=== PATIENT | female | born 1980 | race Two or more races ===

== ENCOUNTER 2018-12-12 15:05 | Emergency (ER) | payer MEDICAID ==
--- NOTE | 2018-12-12 15:53 | ER Document Report ---
ED Medical Screen (RME) - General Chief Complaint: Anxiety Stated Complaint: ANXIETY Time Seen by Provider: 12/12/18 15:36 Mode of Arrival: Medic Information source: Patient Notes: This 38-year-old female presents emergency department for anxiety. Patient reports that she drove all the way from [place] to [place] for an appointment with a psychiatrist regarding her PTSD. Patient reports that appointment was at 1345. She arrived aT 1354 and was turned away. They reported her as a no-show. Patient had a breakdown in the parking lot and EMS was called. Patient is having trouble with her sentences words are fragmented. Eyes are red from crying. Patient reports she has a history of PTSD anxiety panic attacks and pain. Patient reports she was in the and she now has chronic back pain PTS from that. Patient denies fever vomiting. Patient reports when she has a panic attack she becomes lightheaded and dizzy. Patient does take hydroxyzine for the anxiety but did not want to take any because she has to drive all the way home to [place] and she becomes very tired. Patient was instructed to take 1 of her hydroxyzine's to calm her down and we would do labs. Also instructed we would give her something to eat and drink while she waited for the results. Patient's car is over at the medical office of the psychiatrist. She will need a ride there. Denies suicidal or homicidal ideations. I have greeted and performed a rapid initial assessment of this patient. A comprehensive ED assessment and evaluation of the patient, analysis of test results and completion of the medical decision making process will be conducted by additional ED providers. Dictation of this chart was performed using voice recognition software; therefore, there may be some unintended grammatical errors. TRAVEL OUTSIDE OF THE [place] IN LAST 30 DAYS: No - Related Data Allergies/Adverse Reactions: sumatriptan [From Imitrex] Allergy (Verified 12/12/18 15:09) Past Medical History - Social History Chew tobacco use (# tins/day): No Frequency of alcohol use: Rare Drug Abuse: None Renal/ Medical History: Denies: Hx Peritoneal Dialysis Psychiatric Medical History: Reports: Hx Depression Physical Exam - Vital signs Vitals: Temp Pulse Resp BP Pulse Ox 99.2 F 87 22 H 137/77 H 99 12/12/18 15:16 12/12/18 15:16 12/12/18 15:16 12/12/18 15:16 12/12/18 15:16 Course - Vital Signs Vital signs: Temp Pulse Resp BP Pulse Ox 99.2 F 87 22 H 137/77 H 99 12/12/18 15:16 12/12/18 15:16 12/12/18 15:16 12/12/18 15:16 12/12/18 15:16
[2018-12-12 16:34] LABS: ABSOLUTE EOSINOPHILS # (AUTO) 0.1 10^3/uL (0.0-0.6); MEAN CORPUSCULAR HGB CONC 31.8 g/dL (32.0-36.0); TOTAL CELLS COUNTED % (AUTO) 100 %
[2018-12-12 17:04] LABS: ABSOLUTE LYMPHOCYTES (AUTO) 2.6 10^3/uL (0.5-4.7); ABSOLUTE MONOCYTES (AUTO) 0.5 10^3/uL (0.1-1.4); ABSOLUTE NEUT (AUTO) 6.9 10^3/uL (1.7-8.2); BASOPHILS % (AUTO) 0.3 % (0-2); HEMATOCRIT 37.7 % (36.0-47.0); LYMPHOCYTES % (AUTO) 25.5 % (13-45); MEAN CORPUSCULAR HEMOGLOBIN 23.3 pg (27.0-33.4); MEAN CORPUSCULAR VOLUME 74 fl (80-97); MONOCYTES % (AUTO) 4.5 % (3-13); RED BLOOD COUNT 5.13 10^6/uL (3.72-5.28); RED CELL DISTRIBUTION WIDTH 14.6 % (11.5-14.0); SEGMENTED NEUTROPHILS % (AUTO) 68.7 % (42-78)
[2018-12-12 17:05] LABS: PLATELET COUNT 295 10^3/uL (150-450)
[2018-12-12 17:16] LABS: ALBUMIN 4.7 g/dL (3.5-5.0); ALKALINE PHOSPHATASE 64 U/L (38-126); ANION GAP 11 (5-19); ASPARTATE AMINO TRANSFERASE 28 U/L (14-36); BILIRUBIN,DIRECT 0.2 mg/dL (0.0-0.4); BILIRUBIN,TOTAL 0.3 mg/dL (0.2-1.3); BLOOD UREA NITROGEN 13 mg/dL (7-20); CALCIUM 9.2 mg/dL (8.4-10.2); CARBON DIOXIDE 21 mmol/L (22-30); CHLORIDE 109 mmol/L (98-107); GLUCOSE 101 mg/dL (75-110); POTASSIUM 3.8 mmol/L (3.6-5.0); TOTAL PROTEIN 8.4 g/dL (6.3-8.2)
[2018-12-12 18:08] LABS: APPEARANCE,URINE SLIGHTLY-CLOUDY; BILIRUBIN,URINE NEGATIVE (NEGATIVE); COLOR,URINE YELLOW; GLUCOSE, URINE NEGATIVE (NEGATIVE); KETONES,URINE NEGATIVE (NEGATIVE); LEUKOCYTE ESTERASE,URINE TRACE (NEGATIVE); NITRITE,URINE NEGATIVE (NEGATIVE); PROTEIN,URINE NEGATIVE (NEGATIVE); URINE SPECIFIC GRAVITY 1.023
--- NOTE | 2018-12-12 19:00 | ER Document Report ---
ED General - General Chief Complaint: Anxiety Stated Complaint: ANXIETY Time Seen by Provider: 12/12/18 15:36 Primary Care Provider: BETTY DESAI MD [Primary Care Provider] - Follow up as needed Mode of Arrival: Medic Notes: 38-year-old female with history of PTSD, anxiety, chronic back pain presents emergency department for anxiety. Patient reports that she drove all the way from [place] to [place] for an appointment with a psychiatrist regarding her PTSD. Patient reports that appointment was at 1345. She arrived aT 1354 and was turned away. They reported her as a no-show. Patient had a breakdown in the parking lot and EMS was called. Patient was having trouble with her sentences words were fragmented. Patient was having a panic attack and brought in by EMS. Patient takes hydroxyzine for her anxiety but she did not want to take any because she ultimately has to drive all the way home to [place] and it makes her tired. Patient denies any fevers or chills, recent illness, nausea or vomiting, dizziness/lightheadedness/weakness/extremity paresthesias, pa lpitations, shortness of breath at this time. She has calm down quite a bit. TRAVEL OUTSIDE OF THE [place] IN LAST 30 DAYS: No - Related Data Allergies/Adverse Reactions: sumatriptan [From Imitrex] Allergy (Verified 12/12/18 15:09) Past Medical History - General Information source: Patient - Social History Smoking Status: Never Smoker Chew tobacco use (# tins/day): No Frequency of alcohol use: Rare Drug Abuse: None Family History: None Patient has suicidal ideation: No Patient has homicidal ideation: No Renal/ Medical History: Denies: Hx Peritoneal Dialysis Psychiatric Medical History: Reports: Hx Depression Review of Systems - Review of Systems Constitutional: See HPI EENT: No symptoms reported Cardiovascular: See HPI - In a Respiratory: See HPI Gastrointestinal: See HPI Genitourinary: No symptoms reported Female Genitourinary: No symptoms reported Musculoskeletal: No symptoms reported Skin: No symptoms reported Hematologic/Lymphatic: No symptoms reported Neurological/Psychological: See HPI Physical Exam - Vital signs Vitals: Temp Pulse Resp BP Pulse Ox 99.2 F 87 22 H 137/77 H 99 12/12/18 15:16 12/12/18 15:16 12/12/18 15:16 12/12/18 15:16 12/12/18 15:16 - Notes Notes: PHYSICAL EXAMINATION: Reviewed vital signs and charting by RN GENERAL: Alert, interacts well. No acute distress. HEAD: Normocephalic, atraumatic. EYES: Pupils equal and round. Extraocular movements intact. ENT: Oral mucosa moist, tongue midline. NECK: Full range of motion. Trachea midline. LUNGS: Clear to auscultation bilaterally, no wheezes, rales, or rhonchi. No respiratory distress. HEART: Regular rate and rhythm. No murmur ABDOMEN: soft, non-tender. No distention. Bowel sounds present EXTREMITIES: Moves all 4 extremities spontaneously. No edema, No cyanosis. PSYCH: Normal affect, normal mood. Denies SI/HI, patient is upbeat and states she is feeling well. She is requesting discharge because she is no longer having anxiety. SKIN: Warm, dry, normal turgor. No rashes or lesions noted. Course - Re-evaluation Re-evalutation: 12/12/18 18:59 Patient came to us with severe anxiety within anxiety/panic attack. After a period of sitting in the exam room patient states she is feeling much better and is requesting to be discharged. She denies any SI/HI, mood is congruent with affect and she appears to be asymptomatic. I briefly discussed resources and if she would like a principal process engineer consult but she is not from the area and she has a primary care a psychologist and a psychiatrist so she has great coverage. At this time I am comfortable discharging her.0 - Vital Signs Vital signs: Temp Pulse Resp BP Pulse Ox 99.2 F 87 22 H 137/77 H 99 12/12/18 15:16 12/12/18 15:16 12/12/18 15:16 12/12/18 15:16 12/12/18 15:16 - Laboratory Result Diagrams: 12/12/18 16:14 12/12/18 17:08 Laboratory results interpreted by me: 12/12/18 12/12/18 12/12/18 16:14 16:46 17:08 MCV 74 L MCH 23.3 L MCHC 31.8 L RDW 14.6 H Chloride 109 H Carbon Dioxide 21 L Total Protein 8.4 H Urine Urobilinogen 2.0 H Ur Leukocyte Esterase TRACE H Discharge - Discharge Clinical Impression: Anxiety Condition: Good Disposition: HOME, SELF-CARE Additional Instructions: You were seen in the emergency department this afternoon for anxiety. I am glad you are feeling better and you are able to go home. Please follow-up with your primary doctor and/or your psychologist for follow-up. If you develop severe symptoms of anxiety, have homicidal or suicidal ideations, or you have any other concerning symptoms please go to the nearest emergency department. Referrals: BETTY DESAI MD [Primary Care Provider] - Follow up as needed
[2018-12-12 19:34] VITALS: BP 131/76
== END 2018-12-12 19:33 | disposition home or self-care (01) ==
LOC: ER 15:05
DX: F41.9 Anxiety disorder, unspecified (principal); F43.10 Post-traumatic stress disorder, unspecified
CPT/HCPCS: 36415; 80053; 81001; 84703; 85025